=== PATIENT | female | born 1970 | race Caucasian/White ===

== ENCOUNTER → 2016-03-27 | Outpatient (CLI) | payer MEDICAID ==
--- NOTE | 2016-03-27 11:23 | NM ---
Nuclear Medicine Hepatobiliary Scan with Gallbladder Ejection Fraction Clinical History: 45-year-old female with right upper quadrant pain. ICD 10 Diagnostic Code: R10.11 Radiopharmaceutical: 5.4 mCi of IV technetium 99m Choletec. Medical Pharmaceutical: 50.7 mg of fat in oral Nepro. Comparison study: Right upper quadrant abdominal sonography, dated 12/30/2014, which did not reveal a ny cholelithiasis or bile duct dilatation. Findings: Hepatobiliary Scan: There is prompt homogeneous radiotracer uptake by the liver. The bladder begins t o fill by approximately 1 minute, and small bowel is visualized by 3 minutes. There is therefore no e vidence of acute or chronic cholecystitis, or of cystic or common bile duct obstruction. There is no duodenal-gastric reflux. Gallbladder Ejection Fraction: This is abnormal, measuring 33% (the normal range is greater than 35%) , with a flat time activity curve, consistent with gallbladder dyskinesia. Impression: Gallbladder dyskinesia, with an EF of 33%.
== END ==
LOC: FIMAGING 08:39
PROVIDERS: ATTEND Surgery
DX: K82.8 Other specified diseases of gallbladder (principal)

== ENCOUNTER 2016-09-21 01:13 | Emergency (ER) | payer MEDICAID ==
[2016-09-21 01:20] VITALS: TEMP 98.6
--- NOTE | 2016-09-21 01:24 | EDPHY ---
H & P Stated Complaint: r middle finger injury vs caught in dog leash HPI/ROS: HPI CHIEF COMPLAINT: Right middle finger caught in dog Leash HISTORY OF PRESENT ILLNESS: This patient very pleasant 45-year-old female significant past medical history for endometriosis she presents to the emergency room with right middle finger distal pain and swelling. She states she was walking her dog around 530 this evening the dog leash wrapped around her finger and her dog pulled. She immediately had pain. There is no laceration or degloving injury. She was icing it. She decided mentally come to the emergency room at 1 o'clock in the morning for ongoing throbbing pain as well as ecchymosis out of concern that it may be broken. Past Medical History: Endometriosis Past Surgical History: Endometriosis surgery Social History: Denies daily use of drugs alcohol tobacco products. Family History: Noncontributory ROS REVIEW OF SYSTEMS: A comprehensive 10 point review of systems is otherwise negative aside from elements mentioned in the history of present illness. Exam Constitutional triage nursing summary reviewed, vital signs reviewed, awake/ alert. Eyes normal conjunctivae and sclera, EOMI, PERRLA. HENT normal inspection, atraumatic, moist mucus membranes, no epistaxis, neck supple/ no meningismus, no raccoon eyes. Respiratory clear to auscultation bilaterally, normal breath sounds, no respiratory distress, no wheezing. Cardiovascular rate normal, regular rhythm, no murmur, no edema, distal pulses normal. Gastrointestinal soft, non-tender, no rebound, no guarding, normal bowel sounds, no distension, no pulsatile mass. Genitourinary no CVA tenderness. Musculoskeletal right hand: She is neurovascularly intact. There is swelling and ecchymosis present to the distal aspect of the right middle finger. She has full range of motion but pain with range of motion. No open injury. No laceration. It is warm. Good cap refill. no midline vertebral tenderness, full range of motion, no calf swelling, no tenderness of extremities, no meningismus, good pulses, neurovascularly intact. Skin pink, warm, & dry, no rash, skin atraumatic. Neurologic awake, alert and oriented x 3, AAOx3, moves all 4 extremities equally, motor intact, sensory intact, CN II-XII intact, normal cerebellar, normal vision, normal speech. Psychiatric normal mood/affect. Heme/Lymph/Immune no lymphadenopathy. Differential Diagnosis: Includes but is not limited to in a particular order finger contusion, finger sprain, finger fracture Medical Decision Making: Patient declined pain medicine here in emergency room plan for this patient x-ray middle digit. And finger splint. Follow-up Hand surgery. Re-evaluation: 0303AM: X-ray of the middle digit of the right hand has been reviewed by me. I do not appreciate a fracture however the DI P aspect is hyperextended. She may have a hyperextension injury. I will place her finger splint with close Hand follow-up. I have updated her. She understands. Ice her hand stay in finger splint follow-up with Hand surgery. She is neurovascularly intact at this time. She does have pain and swelling ecchymosis present. Recommend elevation ice splint and closed Hand surgery follow-up. Source: Patient - Personal History LMP (Females 10-55): Hysterectomy Current Tetanus/Diphtheria Vaccine: Yes - Medical/Surgical History Hx Asthma: Yes Hx Chronic Respiratory Disease: No Hx Diabetes: No Hx Cardiac Disease: No Hx Renal Disease: Yes Hx Cirrhosis: No Hx Alcoholism: No Hx HIV/AIDS: No Hx Splenectomy or Spleen Trauma: No Other PMH: kidney stones, ureteral surgery, hysterectomy, blood in urine, asthma , endometriosis - Social History Smoking Status: Never smoked Constitutional: Initial Vital Signs Temperature (C) 37.0 C 09/21/16 01:15 Heart Rate 81 09/21/16 01:15 Respiratory Rate 16 09/21/16 01:15 Blood Pressure 138/92 H 09/21/16 01:15 O2 Sat (%) 94 09/21/16 01:15 O2 Delivery Mode Room Air Allergies/Adverse Reactions: latex Allergy (Severe, Verified 09/21/16 01:37) Anaphylaxis erythromycin base Allergy (Verified 09/21/16 01:37) BEE STING Allergy (Uncoded 09/21/16 01:37) DECONGESTANTS Allergy (Uncoded 09/21/16 01:37) TREE NUTS Allergy (Uncoded 09/21/16 01:37) Home Medications: Medication Instructions Recorded Albuterol [Proventil Inhaler] 1 - 2 puffs IH Q4 05/13/13 Cetirizine [ZyrTEC 10 mg (RX)] 05/13/13 Fluticasone/Salmeterol [Advair Hfa 12 gm IH 09/21/16 115-21 Mcg Inhaler] Leuprolide Acetate [Lupron Depot] 11.25 mg IM 09/21/16 Montelukast Sodium 10 mg PO 09/21/16 Departure - Departure Disposition: Home, Routine, Self-Care Clinical Impression: Finger fracture, right Qualifiers: Encounter type: initial encounter Finger: middle finger Fracture type: closed Phalanx: distal Fracture alignment: nondisplaced Qualified Code(s): S62.662A - Nondisplaced fracture of distal phalanx of right middle finger, initial encounter for closed fracture Condition: Good Instructions: Finger Fracture (ED) Additional Instructions: 1. It appears that you have a hyper extension injury of the distal aspect of her finger. You need to follow up with Hand surgery about this. I do not appreciate a large fracture. Cannot rule out very small fracture. Referrals: Priscilla Soria MD [Primary Care Provider] - As per Instructions Agapito Delvalle MD [Medical Doctor] - As per Instructions
[2016-09-21 03:22] VITALS: BP 140/93; PULSE 70; RESP 18; O2SAT 93
== END 2016-09-21 03:21 | disposition home or self-care (01) ==
DX: S62.662A Nondisplaced fracture of distal phalanx of right middle finger, initial encounter for closed fracture (principal); J45.909 Unspecified asthma, uncomplicated; Z91.040 Latex allergy status; X58.XXXA Exposure to other specified factors, initial encounter; Y99.8 Other external cause status; Y93.01 Activity, walking, marching and hiking
CPT/HCPCS: L3925

== ENCOUNTER 2016-11-15 18:02 | Observation (INO) | payer MEDICAID ==
--- NOTE | 2016-11-15 18:14 | CPEKG ---
Heart Rate: 84 RR Interval: 714 P-R Interval: 148 QRSD Interval: 76 QT Interval: 360 QTC Interval: 426 P [place]: 50 QRS [place]: 13 T Wave [place]: 43 EKG Severity - NORMAL ECG - EKG Impression: SINUS RHYTHM Electronically Signed By: Marilyn Kat 16-Nov-2016 00:30:55
--- NOTE | 2016-11-15 18:33 | EDPHY ---
General - History Smoking Status: Never smoked Narrative: CHIEF COMPLAINT: Chest pain, palpitations, nausea HISTORY OF PRESENT ILLNESS: Patient complains of chest pain and palpitations. Palpitations started around 4 :45 p.m.. She went upstairs to lay down and felt her heart race for several minutes. She could feel a beating and felt nauseated and sweaty. This lasted for 15-20 minutes. She was into heart with stethoscope and her irregular rhythm. 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 She has no fever or chills but she does have chest pain that started at 5:30 p.m.. This is left-sided pain. Radiates to the back. Somewhat worse with movement. Some minimal dyspnea. No fever. No cough. No trauma or injury. No recent travel trauma or surgery. No history of venous thrombolic event, but she does have recent left lower calf pain and cramping. No other associated complaints or modifying factors. Family history significant for coronary artery disease with father dying from a heart attack at age 50 REVIEW OF SYSTEMS: Ten systems reviewed and are negative unless otherwise noted in the HPI PCP: Dr. rich SPECIALISTS: OB Gyne, Dr. Cosby ([facility]) Urology Dr. Hoang ([facility]) Nephro Dr. Gruber ([facility]) PAST MEDICAL HISTORY: Asthma, endometriosis, panic attacks, renal dysfunction, orthopedic injuries PAST SURGICAL HISTORY: Shoulder reconstruction x4, ureteral repair x2, hysterectomy, appendectomy, tonsillectomy SOCIAL HISTORY: Nonsmoker. Occasional alcohol. No marijuana or illicit substance FAMILY HISTORY: Noncontributory EXAMINATION General Appearance: Alert, no distress Head: normocephalic, atraumatic Eyes: Pupils equal and round, no conjunctival pallor or injection ENT, Mouth: Mucous membranes moist airway patent Neck: Normal inspection, supple, non-tender Respiratory: Lungs are clear to auscultation. No wheezing, rhonchi or crackles Cardiovascular: Regular rate and rhythm. No murmur. Pulses intact distally Gastrointestinal: Abdomen is soft and nontender Back: non-tender, no bony abnormalities Neurological: A&O, nonfocal, normal gait Skin: Warm and dry, no rash. No petechiae or purpura Extremities: Mild tenderness of the left calf. There is no asymmetry of the lower extremities. No erythema or edema. Negative pain with passive dorsiflexion. Psychiatric: Mood and affect normal DIFFERENTIAL DIAGNOSES: Including but not limited to ACS, palpitations, paroxysmal AFib, paroxysmal a flutter, PE, DVT MDM: 6:30 p.m. Chest pain palpitations. Chest pain has been less than an hour. She does have a family history of coronary artery disease with a concerning age of OR. She has had no history of coronary artery disease or ACS, but she has not had any cardiac workup. Plan for admission the hospital for serial troponins. Laboratory studies and chest x-ray are pending. She is in no acute distress. 7:20 p.m. Laboratory studies are all negative. This includes a negative troponin. Chest x-ray pending. Ultrasound pending. She is in no acute distress. Vital signs stable. This report bone is not yet sensitive enough to definitively rule in or out for ACS. Proceed with admission to the hospital after her chest x-ray DVT study. 7:55 p.m. Contacted by radiologist Dr. Santiago. Ultrasound of the left lower extremities negative for DVT proceed with admission the hospital 8:00 p.m. Case discussed with Dr. Sho German. She will be admitted to her service. She is admitted to a PCU bed. She is admitted in stable condition. Repeat EKG is currently being obtained. 8:10 p.m. Repeat EKG reveals sinus rhythm without ischemia. EKG interpretation: Dr. Marilyn Kat ([facility]) The patient was evaluated and managed by the physician compliance assistant. I have reviewed this chart and I agree with the findings and plan of care as documented , as indicated by my signature. I am the secondary supervising physician. ( Marilyn Kat) - Diagnostics EKG Interpretation: 12 lead EKG is interpreted in Trace master View by emergency department physician. (Marilyn Kat) - Objective Vital Signs: Initial Vital Signs Temperature (C) 37.2 C 11/15/16 18:04 Heart Rate 105 H 11/15/16 18:04 Respiratory Rate 18 11/15/16 18:04 Blood Pressure 186/103 H 11/15/16 18:04 O2 Sat (%) 96 11/15/16 18:04 O2 Delivery Mode Room Air Allergies/Adverse Reactions: latex Allergy (Severe, Verified 11/15/16 18:03) Anaphylaxis erythromycin base Allergy (Verified 11/15/16 18:03) BEE STING Allergy (Uncoded 09/21/16 01:37) DECONGESTANTS Allergy (Uncoded 09/21/16 01:37) TREE NUTS Allergy (Uncoded 09/21/16 01:37) Home Medications: Medication Instructions Recorded Albuterol [Proventil Inhaler HFA 1 - 2 puffs IH Q4 05/13/13 (*)] Leuprolide Acetate [LUPRON DEPOT] 11.25 mg IM Q90D 09/21/16 Montelukast Sodium 10 mg PO HS 09/21/16 Aspirin [Aspirin 325 mg (*)] 325 mg PO DAILY PRN 11/15/16 Cetirizine [ZyrTEC 10 mg (*)] 10 mg PO DAILY PRN 11/15/16 Melatonin [Melatonin 5 mg] 5 mg PO 11/15/16 Laboratory Results: Laboratory Results 11/15/16 18:20 11/15/16 18:20 Medications Given: Discontinued Medications Albuterol (Ventolin Hfa Inhaler) 1 - 2 puffs IH Q4 [facility] PRN Reason: Protocol Stop: 05/14/17 21:59 Last Admin: 11/16/16 01:07 Dose: Not Given Aspirin (Aspirin) 324 mg PO EDNOW ONE Stop: 11/15/16 18:40 Last Admin: 11/15/16 18:41 Dose: 324 mg Melatonin (Melatonin) 3 mg PO [facility] Stop: 05/14/17 21:59 Last Admin: 11/15/16 23:58 Dose: 3 mg Montelukast Sodium (Singulair) 10 mg PO [facility] Stop: 05/14/17 21:59 Last Admin: 11/16/16 00:03 Dose: 10 mg Departure - Departure Disposition: [facility] Inpatient Acute Clinical Impression: Chest pain Qualifiers: Chest pain type: unspecified Qualified Code(s): R07.9 - Chest pain, unspecified Condition: Good
[2016-11-15 18:35] LABS: % IMMATURE GRANULYOCYTES 0.3 % (0.0-1.1); ABSOLUTE IMMATURE GRANULOCYTES 0.03 10^3/uL (0.00-0.10); ADD DIFF? NO; ADD MORPH? NO; ADD SCAN? NO; ATYPICAL LYMPHOCYTE FLAG 0 (0-99); FRAGMENT RBC FLAG 0 (0-99); HEMATOCRIT 43.7 % (38.0-47.0); HEMOGLOBIN 14.9 g/dL (12.6-16.3); LEFT SHIFT FLG 0 (0-99); LIPEMIA HEMOLYSIS FLAG 90 (0-99); MEAN CELL HEMOGLOBIN 29.2 pg (27.9-34.1); MEAN CELL HEMOGLOBIN CONCENTR. 34.1 g/dL (32.4-36.7); MEAN CELL VOLUME 85.5 fL (81.5-99.8); MEAN PLATELET VOLUME 10.5 fL (8.7-11.7); PLATELET CLUMPS FLAG 0 (0-99); PLATELET COUNT 278 10^3/uL (150-400); RED BLOOD CELL COUNT 5.11 10^6/uL (4.18-5.33); RED CELL DISTRIBUTION WIDTH 13.1 % (11.5-15.2)
[2016-11-15] MEDS ORDERED: ASPIRIN 81 MG CHEWABLE TAB PO ONE (18:39)
[2016-11-15 18:45] LABS: APTT 31.6 SEC (23.0-38.0); INR 1.01 (0.83-1.16); PROTIME(PATIENT) 13.2 SEC (12.0-15.0)
[2016-11-15 19:07] LABS: ALANINE AMINOTRANSFERASE 50 IU/L (9-52); ALBUMIN 4.4 g/dL (3.5-5.0); ALKALINE PHOSPHATASE 107 IU/L (38-126); ANION GAP 14 mEq/L (8-16); ASPARTATE AMINOTRANSFERASE 28 IU/L (14-46); BILIRUBIN,TOTAL 0.4 mg/dL (0.1-1.4); BILIRUBIN-CONJUGATED 0.3 mg/dL (0.0-0.5); BILIRUBIN-UNCONJUGATED 0.1 mg/dL (0.0-1.1); CALCIUM 9.8 mg/dL (8.5-10.4); CARBON DIOXIDE 23 mEq/l (22-31); CHLORIDE 106 mEq/L (97-110); CREATININE 0.7 mg/dL (0.6-1.0); GLOMERULAR FILTRATION RATE > 60; GLUCOSE 138 mg/dL (70-100); SODIUM 143 mEq/L (134-144); TOTAL PROTEIN 7.6 g/dL (6.3-8.2)
[2016-11-15 19:19] LABS: TROPONIN I < 0.012 ng/mL (0.000-0.034)
--- NOTE | 2016-11-15 20:10 | CPEKG ---
Heart Rate: 74 RR Interval: 811 P-R Interval: 156 QRSD Interval: 74 QT Interval: 380 QTC Interval: 422 P [place]: 50 QRS [place]: 8 T Wave [place]: 27 EKG Severity - NORMAL ECG - EKG Impression: SINUS RHYTHM Electronically Signed By: Marilyn Kat 16-Nov-2016 00:30:45
[2016-11-15] MEDS ORDERED: ONDANSETRON DISINTEGRATING 4 MG TAB PO PRN (21:51)
[2016-11-15] MEDS ORDERED: ACETAMINOPHEN 325 MG TAB PO PRN (21:51)
[2016-11-15] MEDS ORDERED: ONDANSETRON 4 MG/2 ML VIAL IVP PRN (21:51)
[2016-11-15] MEDS ORDERED: ASPIRIN 325 MG TAB PO PRN (21:53)
[2016-11-15] MEDS ORDERED: CETIRIZINE 10 MG TAB PO PRN (21:53)
[2016-11-15] MEDS ORDERED: MELATONIN 3 MG TAB PO SCH (22:00)
[2016-11-15] MEDS ORDERED: MONTELUKAST SODIUM 10 MG TAB PO SCH (22:00)
--- NOTE | 2016-11-15 22:01 | PDCPHP ---
History and Physical Chief Complaint: rapid heart rate, chest pain - History of Present Illness This is a 46 yo,White,F who presents to ED reports rapid heart rate. She noticed her HR was 126 this afternoon, then she developed chest pain on her way in to the hospital. She reports this was 3/10. It radiated a little to her left shoulder. This was dull and uncomfortable pain, not sharp, but dull. Some associated nausea. No diaphoresis or associated SOB. She denies pleuritic symptoms. She is currently chest pain free. She started Lupron injections a year ago for endometriosis. She wonders if this is causing her rapid heart rate. No h/o hypertension, hyperlipidemia. She is not diabetic. She is a lifetime non-smoker. Her father of [place] at age 50. Her brother also developed symptomatic coronary disease requiring stents at age 48. In the ED, she has a non-ischemic EKG. Her troponin is negative. She is admitted to the PCU for further evaluation. History Information - Allergies/Home Medication List Allergies/Adverse Reactions: latex Allergy (Severe, Verified 11/15/16 18:03) Anaphylaxis erythromycin base Allergy (Verified 11/15/16 18:03) BEE STING Allergy (Uncoded 09/21/16 01:37) DECONGESTANTS Allergy (Uncoded 09/21/16 01:37) TREE NUTS Allergy (Uncoded 09/21/16 01:37) Home Medications: Albuterol [Proventil Inhaler] 1 - 2 puffs IH Q4 05/13/13 [Last Taken 2 Weeks Ago ~11/01/16] Leuprolide Acetate [Lupron Depot] 11.25 mg IM Q90D 09/21/16 [Last Taken 10/01/16 ] Montelukast Sodium 10 mg PO HS 09/21/16 [Last Taken 11/14/16] Aspirin [Aspirin 325 mg (*)] 325 mg PO DAILY PRN 11/15/16 [Last Taken 11/14/16] Cetirizine [ZyrTEC 10 mg (*)] 10 mg PO DAILY PRN 11/15/16 [Last Taken 11/15/16] Melatonin [Melatonin 5 mg] 5 mg PO HS 11/15/16 [Last Taken 11/14/16] I have personally reviewed and updated: family history, medical history, social history, surgical history - Past Medical History Additional medical history: endometriosis, on lupron. asthma. - Surgical History Additional surgical history: shoulder surgery x4, left ureteral implantation, hysterectomy, appendectomy, b/l breast reduction - Family History Positive for: cancer, father with history of CAD younger than 55, male first degree with history of premature CAD - Social History Smoking Status: Never smoked Alcohol Use: None Drug Use: None Additional social history: Lives with her . She just graduated from nursing school, finishing a BSN program Review of Systems Review of Systems: ROS: 10pt was reviewed & negative except for what was stated in HPI & below ESEQUIEL Risk Evaluation age greater or equal to 65: no greater or equal to 3 CAD risk factors: no known CAD(stenosis greater or eqaul to 50%): no ASA use in past 7 days: no severe angina(greater or equal to 2 episodes in 24hrs): no EKG ST changes greater or equal to 0.5mm: no positive cardiac marker: no Total Score: 0 ESEQUIEL Score: 4.7% risk Physical Exam Physical Exam: Temp Pulse Resp BP Pulse Ox 36.9 C 79 14 110/69 92 11/15/16 21:55 11/15/16 21:55 11/15/16 21:55 11/15/16 21:55 11/15/16 21:55 Constitutional: no apparent distress Eyes: PERRL Ears, Nose, Mouth, Throat: moist mucous membranes Cardiovascular: regular rate and rhythym, no murmur, rub, or gallop Respiratory: no respiratory distress, clear to auscultation Gastrointestinal: normoactive bowel sounds, soft, non-tender abdomen Skin: warm Musculoskeletal: full muscle strength Neurologic: AAOx3 Psychiatric: interacting appropriately Lab Data & Imaging Review 11/15/16 18:20 11/15/16 18:20 WBC 9.50 10^3/uL (3.80-9.50) 11/15/16 18:20 RBC 5.11 10^6/uL (4.18-5.33) 11/15/16 18:20 Hgb 14.9 g/dL (12.6-16.3) 11/15/16 18:20 Hct 43.7 % (38.0-47.0) 11/15/16 18:20 MCV 85.5 fL (81.5-99.8) 11/15/16 18:20 MCH 29.2 pg (27.9-34.1) 11/15/16 18:20 MCHC 34.1 g/dL (32.4-36.7) 11/15/16 18:20 RDW 13.1 % (11.5-15.2) 11/15/16 18:20 Plt Count 278 10^3/uL (150-400) 11/15/16 18:20 MPV 10.5 fL (8.7-11.7) 11/15/16 18:20 Neut % (Auto) 65.0 % (39.3-74.2) 11/15/16 18:20 Lymph % (Auto) 26.9 % (15.0-45.0) 11/15/16 18:20 [place] % (Auto) 4.7 % (4.5-13.0) 11/15/16 18:20 Eos % (Auto) 2.7 % (0.6-7.6) 11/15/16 18:20 Baso % (Auto) 0.4 % (0.3-1.7) 11/15/16 18:20 Nucleat RBC Rel Count 0.0 % (0.0-0.2) 11/15/16 18:20 Absolute Neuts (auto) 6.16 10^3/uL (1.70-6.50) 11/15/16 18:20 Absolute Lymphs (auto) 2.56 10^3/uL (1.00-3.00) 11/15/16 18:20 Absolute Monos (auto) 0.45 10^3/uL (0.30-0.80) 11/15/16 18:20 Absolute Eos (auto) 0.26 10^3/uL (0.03-0.40) 11/15/16 18:20 Absolute Basos (auto) 0.04 10^3/uL (0.02-0.10) 11/15/16 18:20 Absolute Nucleated RBC 0.00 10^3/uL (0-0.01) 11/15/16 18:20 Immature Gran % 0.3 % (0.0-1.1) 11/15/16 18:20 Immature Gran # 0.03 10^3/uL (0.00-0.10) 11/15/16 18:20 PT 13.2 SEC (12.0-15.0) 11/15/16 18:20 INR 1.01 (0.83-1.16) 11/15/16 18:20 APTT 31.6 SEC (23.0-38.0) 11/15/16 18:20 Sodium 143 mEq/L (134-144) 11/15/16 18:20 Potassium 4.0 mEq/L (3.5-5.2) 11/15/16 18:20 Chloride 106 mEq/L (97-110) 11/15/16 18:20 Carbon Dioxide 23 mEq/l (22-31) 11/15/16 18:20 Anion Gap 14 mEq/L (8-16) 11/15/16 18:20 BUN 16 mg/dL (7-23) 11/15/16 18:20 Creatinine 0.7 mg/dL (0.6-1.0) 11/15/16 18:20 Estimated GFR > 60 11/15/16 18:20 Glucose 138 mg/dL (70-100) H 11/15/16 18:20 Calcium 9.8 mg/dL (8.5-10.4) 11/15/16 18:20 Total Bilirubin 0.4 mg/dL (0.1-1.4) 11/15/16 18:20 Conjugated Bilirubin 0.3 mg/dL (0.0-0.5) 11/15/16 18:20 Unconjugated Bilirubin 0.1 mg/dL (0.0-1.1) 11/15/16 18:20 AST 28 IU/L (14-46) 11/15/16 18:20 ALT 50 IU/L (9-52) 11/15/16 18:20 Alkaline Phosphatase 107 IU/L (38-126) 11/15/16 18:20 Troponin I < 0.012 ng/mL (0.000-0.034) 11/15/16 18:20 NT-Pro-B Natriuret Pep 16 pg/mL (0-125) 11/15/16 18:20 Total Protein 7.6 g/dL (6.3-8.2) 11/15/16 18:20 Albumin 4.4 g/dL (3.5-5.0) 11/15/16 18:20 Lipase 163 IU/L (23-300) 11/15/16 18:20 TSH 1.360 uIU/mL (0.465-4.680) 11/15/16 18:20 Beta HCG, Qual NEGATIVE 11/15/16 18:20 Visualized and Interpreted Chest x-ray results: Yes Chest X-Ray results: no infiltrate Visualized and Interpreted EKG results: Yes EKG Interpretation: Positive for: normal sinsus rhythm Assessment and Plan Assessment: This is a 46 yo,White,F presenting with chest pain at low risk for acute coronary syndrome. Her only cardiac risk factor is a strong positive family history of premature heart disease in her father and sibling. Chest pain - Initial trop negative. EKG non-ischemic. Her presenting symptom was tachycardia. There is slight increased risk of thromboembolic disease associated with Lupron so D dimer was sent, which is negative. She is currently chest pain free. She received full dose ASA in ED., -admit to PCU -trend troponin -repeat EKG in am -check lipid status -if above w/u negative, may be candidate for outpatient cardiac stress testing within 2-3 days given her low risk ESEQUIEL score vs treadmill stress test in am prior to dc Full code Dispo - obs
[2016-11-15] MEDS: ALBUTEROL 200 PUFFS/18 GM MDI IH SCH (22:21)
[2016-11-16] MEDS: ALBUTEROL 200 PUFFS/18 GM MDI IH SCH (01:07)
[2016-11-16] MEDS ORDERED: ALBUTEROL 200 PUFFS/18 GM MDI IH PRN (03:40)
[2016-11-16 05:06] LABS: CHOLESTEROL 163 mg/dL (140-200); CHOLESTEROL/HDL RATIO 6.27 RATIO (1.00-4.44); HIGH DENSITY LIPOPROTEIN 26 mg/dL (40-95); LDL/HDL RATIO 3.31 RATIO (1.00-3.22); LOW DENSITY LIPOPROTEIN 86 mg/dL (70-100); NON-HIGH DENSITY LIPOPROTEIN 137 mg/dL (90-129); TRIGLYCERIDE 257 mg/dL (35-135); VERY LOW DENSITY LIPOPROTEINS 51 mg/dL (8-25)
--- NOTE | 2016-11-16 08:57 | CPEKG ---
Heart Rate: 81 RR Interval: 741 P-R Interval: 160 QRSD Interval: 78 QT Interval: 388 QTC Interval: 451 P [place]: 57 QRS [place]: 26 T Wave [place]: 32 EKG Severity - NORMAL ECG - EKG Impression: SINUS RHYTHM Electronically Signed By: Shemar Waterman 16-Nov-2016 12:46:40
--- NOTE | 2016-11-16 09:27 | ASMTCASEMG ---
Living Arrangements What is your living Answers: With One Parent arrangement? Who do you live with? Type Of Residence What kind of residence do Answers: House you live in? Discharge Plan Comments Coordination Status Comments Notes: Chart reviewed, pt is a 46 y/o female admitted w/ chest pain. A stress test is ordered. No therapies at this time. Pt will most likely d/c independent w/ supportive family when she is medically stable. CM available for changes. Date Signed: 11/16/2016 09:26 AM Electronically Signed By:TORI Disla
[2016-11-16 09:35] VITALS: BP 121/90; PULSE 76; RESP 10; TEMP 98; O2SAT 92
--- NOTE | 2016-11-16 15:21 | CPR ---
[f rep st] NONINVASIVE CARDIAC PROCEDURE REPORT DATE OF PROCEDURE: 11/16/2016 PROCEDURE: Treadmill exercise stress test. REASON FOR TEST: 1. Chest discomfort. 2. Tachycardia. ORDERING PHYSICIAN: Sheba Soto MD. RESTING: EKG shows a regular sinus rhythm with a ventricular rate of 94. There are no ischemic zaysa ges noted. Resting blood pressure 110/78, oxygen saturation 96%, heart rate 94. She was asymptomati c prior to exercise. EXERCISE: She was exercised according to the Edgardo protocol for a total of 7 minutes. Peak blood pr essure 164/78. Peak heart rate 176. MET level reached 7.9. She had no EKG changes. She felt flush ed. No chest pain during the exercise portion. There were no EKG changes. RECOVERY: She did recover, taking a prolonged length of time. Recovery was for 10 minutes. At that time, her heart rate was 112, blood pressure 122/74. She was asymptomatic. There were no ischemic changes on EKG. At this time, she was stable for return to room. This test was reviewed with Dr. Gokul Lopez. No concerns of cardiac abnormality were seen. She has poor exercise capacity. Otherwise, an uneventful test. /[id number]/MODL
--- NOTE | 2016-11-16 19:07 | GDS ---
[f rep st] DISCHARGE SUMMARY DISCHARGE DIAGNOSES: 1. Noncardiac chest pain. Suspect anxiety. 2. Endometriosis on Lupron. 3. Medication-induced menopause. 4. Recent rapid weight gain. 5. Hypertriglyceridemia. 6. Deconditioning. HISTORY: The patient is a 46-year-old female with a significant family history for coronary artery d isease, including her father, who at a young age and her brother had a stent in his late 40s. S he presents to the hospital with chest pain. She had serial troponins, EKGs that were negative. She had an exercise treadmill stress test today that was negative and was quite reassuring. She seems t o be quite anxious regarding her family history. I think this is contributing to her presentation. Her D-dimer was negative. She was reassured regarding her normal stress test. She has been started on Lupron injections for severe endometriosis which is compromising her kidneys. Since starting Lupr on injections, she has had a rapid weight gain and is also having problems with tachycardia. I suspe ct this is due to medication-induced menopause. She will discuss options for symptomatic treatment w ith her outpatient providers. Lipid panel showed a good LDL at 86, but her triglycerides were mildly elevated at 257, and her HDL cholesterol was only 26. She was counseled regarding her lipid profile and recommendation for lifestyle modification. DISCHARGE MEDICATIONS: Please see computerized record for full detailed list. There are no new medi cations given at time of hospital discharge. ADDITIONAL DISCHARGE INSTRUCTIONS: Follow up primary care. The patient WAS seen and examined by me on the day of discharge. /[id number]/MODL
--- NOTE | 2016-11-17 12:44 | ASDISCHSUM ---
Discharge Information Plan Status:Home with No Needs Medically Cleared to Leave: Discharge Date:11/16/2016 04:20 PM CM D/C Disposition: ADT D/C Disposition:Home, Routine, Self-Care Projected Discharge Date:11/16/2016 12:00 AM Transportation at D/C: Discharge Delay Reason: Follow-Up Date:11/16/2016 12:00 AM Discharge Slot: Final Diagnosis: Placement Information Patient Contact Information Contact Name:YUDY Relationship:Mother Address:[id number] City:[place] Alternate Phone: [facility]/Zip Code:[place] [address] Email: Financial Information Financial Class: Primary Plan Desc:[employer] Primary Plan Number:[id number] Secondary Plan Desc: Secondary Plan Number: Assessment Information [facility] Initial CM Assessment Living Arrangements What is your living Answers: With One Parent arrangement? Who do you live with? Type Of Residence What kind of residence do Answers: House you live in? Discharge Plan Comments Coordination Status Comments Notes: Chart reviewed, pt is a 46 y/o female admitted w/ chest pain. A stress test is ordered. No therapies at this time. Pt will most likely d/c independent w/ supportive family when she is medically stable. CM available for changes. Date Signed: 11/16/2016 09:26 AM Electronically Signed By:TORI Disla Intervention Information
== END 2016-11-16 16:20 | disposition home or self-care (01) ==
LOC: F2W 21:05
PROVIDERS: ADMIT Hospitalist; ATTEND Internal Medicine
DX: R07.9 Chest pain, unspecified (principal); R00.0 Tachycardia, unspecified; N80.9 Endometriosis, unspecified; R63.5 Abnormal weight gain; E78.5 Hyperlipidemia, unspecified; M79.605 Pain in left leg; J45.909 Unspecified asthma, uncomplicated; Z79.818 Long term (current) use of other agents affecting estrogen receptors and estrogen levels; Z82.49 Family history of ischemic heart disease and other diseases of the circulatory system; Z91.040 Latex allergy status
CPT/HCPCS: 71020; 93005; 93017; 93971; 99285; G0378

== ENCOUNTER → 2017-12-02 | Outpatient (CLI) | payer MEDICAID | LOC: SBRMNEURO 21:00 | PROVIDERS: ATTEND Internal Medicine Sleep Medicine | DX: G47.33 Obstructive sleep apnea (adult) (pediatric) (principal); G47.36 Sleep related hypoventilation in conditions classified elsewhere ==